=== PATIENT | male | born 1940 | race Caucasian/White ===

== ENCOUNTER 2019-07-03 20:00 | Emergency (ER) | payer MEDICARE, OTHER ==
[~2019-07-03 20:00] MED LIST: AMIO400T5 PO; ASPI81TA45 PO; DOCU-131 PO; ENAL2.5T PO; FURO20TA3 PO; HYDR-3240 PO; METO25TA91 PO; POTA10TA11 PO; WARF7.5T46 PO; amlodipine PO; coumadin PO; lisinopril PO; metoprolol PO; will bring a list
== END 2019-07-03 20:30 ==
LOC: ED 20:23
DX: M54.30 Sciatica, unspecified side (principal); Z53.21 Procedure and treatment not carried out due to patient leaving prior to being seen by health care provider